=== PATIENT | male | born 1995 | race Caucasian/White ===

== ENCOUNTER 2024-08-26 15:26 | Inpatient (IN) | payer OTHER ==
[~2024-08-26] VITALS: Ht 175.3 cm; Wt 100.2 kg
[2024-08-26 17:04] LABS: PLATELET COUNT (AUTO) 167 K/uL (150-450); RED BLOOD CELL COUNT(AUTO) 5.19 MIL/uL (4.50-5.90); RED CELL DISTRIBUTION WIDTH 13.8 % (11.5-14.5); WHITE BLOOD COUNT (AUTO) 5.9 K/uL (4.5-11.0)
[2024-08-26 17:12] LABS: CALCIUM, TOTAL 8.6 mg/dL (8.8-10.5); CREATININE 1.05 mg/dL (0.60-1.30); GLOMERULAR FILTR. RATE CALC > 60 mL/min (>60); GLUCOSE,RANDOM 124 mg/dL (70-110); SODIUM SERUM 141 mmol/L (136-145); UREA NITROGEN, BLOOD 15 mg/dL (7-18)
[2024-08-26 17:19] LABS: ASPARTATE AMINOTRANSFERASE 16.0 U/L (15-37); TOTAL PROTEIN, SERUM 7.1 g/dL (6.4-8.2)
[2024-08-26 17:23] LABS: TROPONIN I-HIGH SENSITIVITY 4 ng/L (<76)
[2024-08-26] MEDS ORDERED: ZOLPIDEM TARTRATE 5 MG TABLET PO PRN (18:45)
[2024-08-26] MEDS ORDERED: ONDANSETRON HCL 4 MG/2 ML VIAL IVP PRN (18:45)
[2024-08-26] MEDS ORDERED: IPRATROPIUM BROMIDE 0.5 MG/2.5 ML NEB SOLUTION NEB PRN (18:45)
[2024-08-26] MEDS ORDERED: ALBUTEROL SULFATE 2.5 MG/0.5 ML NEB SOLUTION NEB PRN (18:45)
[2024-08-26] MEDS ORDERED: BISACODYL 10 MG RECTAL RECTAL SUPPOSITORY PR PRN (18:45)
[2024-08-26] MEDS ORDERED: 0.9% SODIUM CHLORIDE 15 ML NEB SOLUTION NEB ONE (20:31)
[2024-08-26 20:34] LABS: COVID AG,FIA SOURCE NASAL SWAB
[2024-08-26 20:38] LABS: APPEARANCE,URINE CLEAR (CLEAR); GLUCOSE, URINE (UA) NEGATIVE (NEGATIVE); LEUKOCYTE ESTERASE ,URINE NEGATIVE (NEGATIVE); NITRATE,URINE NEGATIVE (NEGATIVE); OCCULT BLOOD,URINE NEGATIVE (NEGATIVE); PH,URINE DRUG SCREEN 6.5 (5.0-8.0); SPECIFIC GRAVITIY, URINE 1.013 (1.003-1.030)
[2024-08-26 20:45] LABS: ALCOHOL, URINE DRUG SCREEN NEGATIVE (NEGATIVE); AMPHET/METH SCREEN,URINE NEGATIVE (NEGATIVE); BARBITURATE SCREEN, URINE NEGATIVE (NEGATIVE); CANNABINOID SCREEN,URINE NEGATIVE (NEGATIVE); COCAINE SCREEN,URINE NEGATIVE (NEGATIVE); METHADONE SCREEN, URINE NEGATIVE (NEGATIVE)
[2024-08-26] MEDS ORDERED: SODIUM CHLORIDE 3% 15 ML NEB SOLUTION NEB ONE (20:45)
[2024-08-26 20:54] LABS: INFLUENZA TYPE A NEGATIVE FOR TYPE A (NEGATIVE); INFLUENZA TYPE B NEGATIVE FOR TYPE B (NEGATIVE)
[2024-08-26 20:55] LABS: SARS-COV2 (COVID) ANTIGEN,FIA Negative (Negative)
[2024-08-26 21:55] VITALS: PULSE 75; RESP 18; O2SAT 97
[2024-08-26 22:20] VITALS: PULSE 76; RESP 18; O2SAT 99
[2024-08-27] MEDS: HEPARIN SODIUM,PORCINE 5,000 UNITS/ML VIAL SQ SCH (00:17)
[2024-08-27] MEDS: MAGNESIUM HYDROXIDE SUSPENSION 30 ML UDCUP PO PRN (02:44)
[2024-08-27 04:06] VITALS: BP 112/72; PULSE 49; RESP 18; TEMP 97.9; O2SAT 96
[2024-08-27] MEDS ORDERED: 0.9% SODIUM CHLORIDE 15 ML NEB SOLUTION NEB ONE (07:24)
[2024-08-27 08:21] VITALS: BP 110/69; PULSE 51; RESP 18; TEMP 98.2; O2SAT 98
[2024-08-27] MEDS: PANTOPRAZOLE SODIUM 40 MG DR TABLET PO SCH (08:58)
[2024-08-27 13:17] LABS: MTB PCR w/Rif. Resistance-SPUT NOT DETECTED (Not Detectd)
[2024-08-27 16:14] LABS: MTB PCR w/Rif. Resistance-SPUT NOT DETECTED (Not Detectd)
[2024-08-27 16:30] VITALS: BP 113/65; PULSE 59; RESP 20; TEMP 98.6; O2SAT 98
[2024-08-27 20:19] VITALS: BP 119/85; PULSE 67; RESP 19; TEMP 98.4; O2SAT 98
[2024-08-27 23:57] VITALS: BP 125/78; PULSE 51; RESP 16; TEMP 98.4; O2SAT 96
[2024-08-28 04:36] VITALS: BP 109/72; PULSE 57; RESP 16; TEMP 97.3; O2SAT 97
[2024-08-28 08:13] VITALS: BP 108/74; PULSE 58; RESP 20; TEMP 98.2; O2SAT 98
[2024-08-28 16:09] VITALS: BP 120/66; PULSE 51; RESP 18; TEMP 98.8; O2SAT 97
[2024-08-28 19:06] LABS: QUANTIFERON+, Nil Value 0.14 IU/mL; QUANTIFERON+,Mitogen Value >10.00 IU/mL; QUANTIFERON+,TB1 Antigen Value 0.22 IU/mL; QUANTIFERON+,TB2 Antigen Value 0.20 IU/mL; QUANTIFERON, TB GOLD PLUS Negative (Negative)
[2024-08-28 20:00] VITALS: BP 130/81; PULSE 72; RESP 18; TEMP 98.2; O2SAT 98
[2024-08-29] VITALS (7 sets, daily range): BP systolic 115–139; BP diastolic 67–97; PULSE 59–73; RESP 18–20; TEMP 97.5–98.6; O2SAT 96–98
[2024-08-29] MEDS: ACETAMINOPHEN 325 MG TABLET PO PRN (20:19)
[2024-08-29 21:00] LABS: TROPONIN I-HIGH SENSITIVITY 5 ng/L (<76)
[2024-08-30 03:08] VITALS: BP 107/72; PULSE 70; RESP 19; TEMP 98.2; O2SAT 98
[2024-08-30 06:32] LABS: PLATELET COUNT (AUTO) 150 K/uL (150-450); RED BLOOD CELL COUNT(AUTO) 5.43 MIL/uL (4.50-5.90); RED CELL DISTRIBUTION WIDTH 13.2 % (11.5-14.5); WHITE BLOOD COUNT (AUTO) 7.2 K/uL (4.5-11.0)
[2024-08-30 06:42] LABS: CALCIUM, TOTAL 8.6 mg/dL (8.8-10.5); CREATININE 1.03 mg/dL (0.60-1.30); GLOMERULAR FILTR. RATE CALC > 60 mL/min (>60); GLUCOSE,RANDOM 85 mg/dL (70-110); SODIUM SERUM 142 mmol/L (136-145); UREA NITROGEN, BLOOD 14 mg/dL (7-18)
[2024-08-30 08:58] VITALS: BP 122/81; PULSE 77; RESP 18; TEMP 97.5; O2SAT 98
[2024-08-30 11:25] VITALS: BP 119/74; PULSE 74; RESP 19; TEMP 98.1; O2SAT 97
[2024-08-30 15:00] VITALS: BP 116/80; PULSE 65; RESP 20; TEMP 97.8; O2SAT 98
== END 2024-08-30 15:30 | DRG 179 ==
LOC: EMS 15:26 → EDH 18:00 → 5S 22:44
PROVIDERS: ADMIT Hospitalist; ATTEND Hospitalist
DX: A15.9 Respiratory tuberculosis unspecified (principal); R07.89 Other chest pain; Z20.822 Contact with and (suspected) exposure to COVID-19
CPT/HCPCS: 71046; 71250; 80048; 80076; 80307; 81003; 83880; 84484; 85025; 86480; 87015; 87081; 87206; 87389; 87556; 87804; 93005; 94640; 99285; J1644; 36415-L1; 36415-TC